=== PATIENT | female | born 2000 | race Caucasian/White ===

== ENCOUNTER 2023-08-10 08:32 | Emergency (ER) | payer BC, SELFPAY ==
[2023-08-10 08:33] VITALS: BP 152/89
--- NOTE | 2023-08-10 09:16 | ED.GENMED ---
History of Present Illness
General
Chief Complaint: Rabies
Source: patient
Exam Limitations: none
Time Seen by Provider: 08/10/23 09:07
Nursing documentation reviewed up to this point in time: agreed with
Travel History
Have you had any contact with someone who has COVID-19?: No
Do you have any symptoms of coronavirus? Fever > 100 degrees, chills, cough, shortness of breath, sore throat, loss of taste or smell, muscle aches, or headache?: No
History of Present Illness
History of Present Illness:
22-year-old female without significant past medical history presenting to the emergency department today for second rabies vaccination. She claims that there was a bat found in her room when she was at college she came home over the weekend for the
summer. She is seeking her additional rabies vaccinations at this point. Initial dose was on the seventh today being the third day and due for her second dose. Denies any symptoms or concerns otherwise.
Past History
Past History
ED Past Medical History: None
ED Past Surgical History: Orthopedic
Social History
Tobacco: Non-smoker
Alcohol: None
Drug: None
Review of Systems
Review of Systems
Allergies reviewed?: Yes
All Other Systems: ROS reviewed and negative except as documented in HPI and ROS
Phy Exam
Physical Exam
Physical Exam:
GENERAL: Alert , in no apparent distress
EYE: pupils equal and reactive
NECK: Supple, no significant adenopathy.
ENT: o/p clr, mmm.
CARDIAC: Regular rate and rhythm .
LUNGS: Clear breath sounds bilaterally, no acute respiratory distress, no wheezes/rales/rhonchi
ABDOMEN: Soft, without focal tenderness, no r/g, no cvat
NEUROLOGICAL: Alert and oriented, no focal neuro deficits
SKIN: Warm and dry, skin intact.
MUSCULOSKELETAL: No edema, well perfused.
PSYCH: Normal and appropriate interaction.
Course
Orders/Labs/Results
Orders:
Orders
08/10/23 09:15
Rabies Vaccine ([facility])/Pf [Rabavert Rabies Vacc W-Diluent] 2.5 unit IM .ONCE ONE
Vital Signs
Initial and Last Documented VS:
Initial Vital Signs
Temp Pulse Resp BP Pulse Ox
98.4 F 49 18 152/89 100
08/10/23 08:33 08/10/23 08:33 08/10/23 08:33 08/10/23 08:33 08/10/23 08:33
Last Documented Vital Signs
Temp Pulse Resp BP Pulse Ox
98.4 F 49 18 152/89 100
08/10/23 08:33 08/10/23 08:33 08/10/23 08:33 08/10/23 08:33 08/10/23 08:33
MDM/Problems Addressed
MDM/Problems Addressed:
22-year-old female presents seeking additional rabies vaccination. Will dose on the seventh after bat exposure. She denies any direct contact that she is aware of no symptoms at this time. Patient given her second dose and also written for doses
3 and 4. Return precautions given.
*Critical Care Note
Total Time (30-74mins, 75-104mins- exclusive of procedures): Not Applicable
ED Attending Note
-
Portions of this chart may have been created with voice recognition software.� Occasional wrong word or��sound alike� substitutions may have occurred due to the inherent limitations of voice recognition software.
Discharge Plan
Departure
Patient Disposition: Home (Routine Discharge)
Date of Disposition: 08/10/23
Time of Disposition: 09:18
Patient with high blood pressure during this ER visit?: No
Condition: Good
Covid-19: Not Applicable
Discharge Problem:
Exposure to bat without known bite
Instructions: Rabies
Prescriptions:
New
RabAvert (PF) 2.5 unit Suspension For Reconstitution
1 ml IM . DIRECTED Qty: 2 0RF
Rx Instructions:
See Rabies Vaccine Post Exposure Prophylaxis Instruction Sheet for Dosing Instructions
No Action
doxycycline hyclate 100 MG capsule
100 mg PO Q12 Qty: 28 0RF
Rx Instructions:
1 tablet twice a day for 2 weeks
Referrals:
Roz Mcknight MD [Family Provider] -
Stand Alone Forms: Rabies Vaccine Post Exp Dosing
Activity Restrictions/Additional Instructions:
You came to the emergency department today for a second rabies vaccination. Please go to the infusion center for dose 3 and dose for on the and the . Return to the emergency department for any worsening, new or concerning symptoms.
Interventions
Interventions:
*Risk Screen - Suicide Last Done: 08/10/23 08:33
*General Assessment Last Done: 08/10/23 08:33
*Neglect/Abuse Screening Last Done: 08/10/23 08:33
Discharge Date and Time
Print Language: [id number]
[2023-08-10] MEDS: RABAVERT RABIES VACC W-DILUENT 2.5 UNIT IM (09:38)
== END 2023-08-10 09:45 | disposition home or self-care (01) ==
LOC: EMR 08:32
PROVIDERS: EMERGENCY PHYSICIAN Emergency Medicine; FAMILY PHYSICIAN Internal Medicine
DX: Z23 Encounter for immunization (principal); Z20.3 Contact with and (suspected) exposure to rabies
CPT/HCPCS: 99282; 90471; 90675

== ENCOUNTER → 2024-05-20 07:04 | Outpatient (REF) | payer BC, SELFPAY | LOC: MRI 3T 07:04 | PROVIDERS: ATTENDING PHYSICIAN Orthopaedic Surgery; FAMILY PHYSICIAN Internal Medicine | DX: S83.206A Unspecified tear of unspecified meniscus, current injury, right knee, initial encounter (principal) | CPT/HCPCS: 73721 ==